=== PATIENT | female | born 1985 | race Caucasian/White ===

== ENCOUNTER → 2021-07-18 | Day surgery (SDC) | payer BC ==
[~2021-07-18] MED LIST: FEOSOL325 MG PO; FERROUS SULFAT325 M2 PO; LEVAQUIN750 MG PO; PRENATAL VITAM1 EAC8 PO; PRILOSEC OTC20 MG PO; ZOFRAN4 MG PO
[2021-07-18 06:57] LABS: HEMOGLOBIN 11.7 gm/dl (12.3-15.3); RED BLOOD COUNT 4.09 M/UL (4.00-5.10); WHITE BLOOD COUNT 8.3 K/UL (4.5-11.0)
== END | disposition home or self-care (01) ==
LOC: OR 05:30
PROVIDERS: Obstetrics & Gynecology
DX: O03.4 Incomplete spontaneous abortion without complication (principal); O02.0 Blighted ovum and nonhydatidiform mole; D50.9 Iron deficiency anemia, unspecified; K21.9 Gastro-esophageal reflux disease without esophagitis; E66.9 Obesity, unspecified; Z80.41 Family history of malignant neoplasm of ovary; Z87.891 Personal history of nicotine dependence; Z20.822 Contact with and (suspected) exposure to COVID-19
CPT/HCPCS: 36415; 81001; 85025; J1100; J1885; J2250; J2405; J2704; J2765; J3010; J7030; J7120